=== PATIENT | female | born 1960 | race Hispanic/Latino ===

== ENCOUNTER 2019-03-04 12:31 | Emergency (ER) | payer OTHER ==
[~2019-03-04] VITALS: Ht 157.5 cm; Wt 98.0 kg
[~2019-03-04 12:31] MED LIST: ASPIR 8181 MG PO; CARVEDILOL25 MG PO; HYZAAR 50-12.51 EACH PO; LASIX20 MG PO
--- OUTSIDE RECORDS SUMMARY | 2019-03-04 12:34 | XMS REPORT ---
Author Author [facility] Address Unknown Phone Unavailable Care Team Providers Care Center Consultant Name Role Phone Unavailable Unavailable Payers Payer Name Policy Type Policy Number Effective Date Expiration Date Problems This patient has no known problems. Allergies, Adverse Reactions, Alerts Allergy Name Allergy Type Status Severity Reaction(s) Onset Date Inactive Date Treating Clinician Comments iodine DA Active U 2018-08-21 00:00:00 acetaminophen DA Active U 2018-08-21 00:00:00 iodine DA Active U 2018-08-18 00:00:00 acetaminophen DA Active U 2018-08-18 00:00:00 No Known Allergies DA Active U 2015-01-27 00:00:00 Medications This patient has no known medications. Results Test Description Test Time Test Comments Text Results Atomic Results Result Comments - CT ABD PELVIS W/O CONT 2018-09-25 12:36:00 Name: KRISTINA MAC [facility] : 1960 Age/S: 57 / F [address] [place] [address] Unit #: [id number] Loc: [place] [address] Phys: Bony Goss MD Acct: [id number] Dis Date: Status: REG CLI PHONE #: [phone] Exam Date: 09/25/2018 1105 FAX #: [phone] Reason: 789.01, R10.11, RIGHT UPPER QUADRANT ABDOMINAL EXAMS: CPT CODE: [id number] CT ABD PELVIS W/O CONT 05813 PROCEDURE: CT ABDOMEN AND PELVIS WITHOUT CONTRAST INDICATION: 789.01, R10.11, RIGHT UPPER QUADRANT ABDOMINAL PAIN. COMPARISON: No relevant priors are available TECHNIQUE: Helical imaging was performed diaphragm through the symphysis with multiplanar reconstructions. IV CONTRAST: None administered due to stated contrast allergy. GI CONTRAST: [address] imaging performed at this location utilizes radiation dose optimization techniques which include one or more of the following: -Automated exposure control - Adjustment of the mA and/or kV according to patient size -Use of iterative reconstruction technique CT Radiation Dose DLP 642.20 mGy-cm LIMITATIONS: Evaluation of abdominal viscera and vascular structures may be limited by the lack of intravenous contrast. FINDINGS: LOWER CHEST: The lung bases are clear. LIVER: Normal. GALLBLADDER: Surgically absent. No biliary dilatation. SPLEEN: Normal. PANCREAS: Normal. ADRENALS: Normal. KIDNEYS: Nonobstructing calculus upper pole left renal sinus 4 mm diameter. No hydronephrosis. The renal contours are normal. BOWEL: The stomach, small bowel and colon are unremarkable. Appendix not visualized. No evidence for appendicitis. PERITONEUM: No free intraperitoneal fluid or air. RETROPERITONEUM: No adenopathy. The aorta is normal. PELVIS: No pelvic mass. The urinary bladder is normal. PAGE 1 Signed Report (CONTINUED) Name: KRISTINA MAC [facility] : 1960 Age/S: 57 / F [address] [place], [place] [address]vd Unit #: [id number] Loc: [place] [address] Phys: Bony Goss MD Acct: [id number] Dis Date: Status: REG CLI PHONE #: [phone] Exam Date: 09/25/2018 1105 FAX #: [phone] Reason: 789.01, R10.11, RIGHT UPPER QUADRANT ABDOMINAL EXAMS: CPT CODE: [id number] CT ABD PELVIS W/O CONT 70254 <Continued> MUSCULOSKELETAL: Multilevel degenerative changes of the spine. No acute skeletal abnormality. IMPRESSION: 1. No acute abnormality demonstrated to account for the patient's symptoms. 2. Cholecystectomy. 3. Nonobstructing left nephrolithiasis. SL: [id number] at 1236 Reported and signed by: Isaak Church M.D. CC: Bony Goss MD; Douglas Parada MD Technologist:Jaxon Reis, RT(R)(CT) CTDI: DLP: Trnscb Date/Time: 09/25/2018 (2148) [email or web address] Orig Print D/T: S: 09/25/2018 (1010) PAGE 2 Signed Report SURGICAL SPECIMENS 2018-08-25 15:19:00 RUN DATE: 08/25/18 [facility] *LIVE* PAGE 1 RUN TIME: 1520 Specimen Inquiry RUN USER: INTERFACE PATIENT: KRISTINA MAC LOC: [facility] U #: [id number] AGE/SX: 57/F ROOM: RE08/21/18[facility] DR: Bony Goss MD : 56 BED: DIS: STATUS: DEP LUISC TLOC: SPEC #: [id number] RECD: 08/21/18 STATUS: ROMA REQ #: [id number] NEO: 08/21/18 [facility] DR: Bony Goss MD ENTERED: 08/23/18 SP TYPE: SURG SPEC OTHR DR: Douglas Parada MD ORDERED: LEVEL 4 CODES: [id number] - STOMACH, NOS COPIES TO: Bony Goss MD [address] [place], [place] [id number] [place] [address] [facility] [address] 2 [phone] PROCEDURES: GM LEVEL 4 (Incomplete) TISSUES: 1. STOMACH, NOS - Stomach, antrum and body, bx. FINAL DIAGNOSIS Stomach, antrum and body, bx.: Chronic gastritis with lymphoid aggregates, no Helicobacter organisms identified. GROSS AND MICROSCOPIC GROSS EXAMINATION: Received is/are the specimen/s designated with the appropriate dimensions and block designation: 1. Stomach, antrum and body, bx.: Multiple segments of pink-baxter tissue, measuring up to 0.3 cm. in greatest dimension each. MICROSCOPIC EXAMINATION: Sections of the "Stomach, antrum and body, bx." reveal changes of chronic gastritis. Some lymphoid aggregates are present but appear benign microscopically. The lamina propria contains a mild inflammatory infilt rate. The Alcian blue/PAS stain does not show goblet cell metaplasia. The immunostain for Helicobacter organisms is negative. (When special stains have been reviewed, the appropriate positive/negative controls have been reviewed and are appropriately positive/negative). CONTINUED ON NEXT PAGE RUN DATE: 08/25/18 [facility] *LIVE* PAGE 2 RUN TIME: 1520 Specimen Inquiry RUN USER: INTERFACE SPEC #: [id number] PATIENT: KRISTINA MAC #[id number] (Continued) POST-OP DIAGNOSIS Gastritis, Grade 1 esophageal varices, C- hemorrhoids PRE-OP DIAGNOSIS Colon cancer screening, epigastric pain, right upper quad. abdominal pain Signed SIGNATURE ON FILE Corry Childress MD 08/25/18 1519 END OF REPORT GLUBED 2018-08-21 13:39:00 GLUBED (test code=GLUBED) 110 MG/DL 70-110 Performed by certified forging machine operator at [facility] BASIC METABOLIC [id number] 11:36:00* Test Item Value Reference Range Comments SODIUM (test code=NA) 139 mEq/L 134-147 POTASSIUM (test code=K) 3.7 mEq/L 3.4-5.0 CHLORIDE (test code=CL) 107 mEq/L 100-108 CARBON DIOXIDE (test code=CO2) 29 mEq/L 21-33 ANION GAP (test code=GAP) 7 0-20 GLUCOSE (test code=GLU) 140 mg/dL 70-110 BLOOD UREA NITROGEN (test code=BUN) 7 mg/dL 7-18 GLOMERULAR FILTRATION RATE (test code=GFR) 102.3 90-95 Units of measure=ml/min/1.73 m2 CREATININE (test code=CREAT) 0.6 mg/dL 0.6-1.3 CALCIUM (test code=CA) 8.6 mg/dL 8.0-10.5 [id number] 11:18:00* Test Item Value Reference Range Comments GLUBED (test code=GLUBED) 130 MG/DL 70-110 Performed by certified forging machine operator at [facility] CBC W/AUTO [id number] 11:36:00* Test Item Value Reference Range Comments WHITE BLOOD CELL (test code=WBC) 6.89 x10 3/uL 4.5-11.0 RED BLOOD CELL (test code=RBC) 4.72 x10 6/uL 3.54-5.02 HEMOGLOBIN (test code=HGB) 14.2 g/dL 11.0-15.0 HEMATOCRIT (test code=HCT) 41.8 % 33.0-45.0 MEAN CELL VOLUME (test code=MCV) 88.6 fL 81.0-99.0 MEAN CELL HGB (test code=MCH) 30.1 pg 27.0-33.0 MEAN CELL HGB CONCETRATION (test code=MCHC) 34.0 g/dL 33.0-37.0 RED CELL DISTRIBUTION WIDTH CV (test code=RDW) 12.7 % 11.5-14.5 RED CELL DISTRIBUTION WIDTH SD (test code=RDW-SD) 41.4 fL 37.0-54.0 PLATELET COUNT (test code=PLT) 251 x10 3/uL 150-400 MEAN PLATELET VOLUME (test code=MPV) 11.2 fL 7.0-9.0 NEUTROPHIL % (test code=NT%) 66.4 % 56.0-77.0 IMMATURE GRANULOCYTE % (test code=IG%) 0.1 % 0.0-2.0 LYMPHOCYTE % (test code=LY%) 24.7 % 14.0-32.0 MONOCYTE % (test code=MO%) 6.4 % 4.8-9.0 EOSINOPHIL % (test code=EO%) 1.7 % 0.3-3.7 BASOPHIL % (test code=BA%) 0.7 % 0.0-2.0 NUCLEATED RBC % (test code=NRBC%) 0.0 % 0-0 NEUTROPHIL # (test code=NT#) 4.57 x10 3/uL 2.0-7.6 IMMATURE GRANULOCYTE # (test code=IG#) 0.01 x10 3/uL 0.00-0.03 LYMPHOCYTE # (test code=LY#) 1.70 x10 3/uL 1.0-3.8 MONOCYTE # (test code=MO#) 0.44 x10 3/uL 0.1-0.8 EOSINOPHIL # (test code=EO#) 0.12 x10 3/uL 0.0-0.2 BASOPHIL # (test code=BA#) 0.05 x10 3/uL 0.0-0.2 NUCLEATED RBC # (test code=NRBC#) 0.00 x10 3/uL 0.0-0.1 MANUAL DIFF REQUIRED (test code=MDIFF) NO BASIC METABOLIC [id number] 10:52:00* Test Item Value Reference Range Comments SODIUM (test code=NA) 138 mEq/L 134-147 POTASSIUM (test code=K) 3.8 mEq/L 3.4-5.0 CHLORIDE (test code=CL) 107 mEq/L 100-108 CARBON DIOXIDE (test code=CO2) 28 mEq/L 21-33 ANION GAP (test code=GAP) 7 0-20 GLUCOSE (test code=GLU) 169 mg/dL 70-110 BLOOD UREA NITROGEN (test code=BUN) 7 mg/dL 7-18 GLOMERULAR FILTRATION RATE (test code=GFR) 102.3 90-95 Units of measure=ml/min/1.73 m2 CREATININE (test code=CREAT) 0.6 mg/dL 0.6-1.3 CALCIUM (test code=CA) 8.8 mg/dL 8.0-10.5 - XR CHEST 2 [id number] 10:22:00 FAX: Bony Kirby MD [phone] Clifford: St: PRE FAX: Douglas Ta MD [phone] FAX: Gudelia Leiva Name: KRISTINA MAC [facility] : 1960 Age/S: 57/F [address] [place] [address] Bl Unit #: [id number] Loc: [place] [address] Phys: Gudelia Leiva NP Acct: [id number] Dis Date: Status: PRE SDC PH ONE #: [phone] Exam Date: 08/18/2018 1023 FAX #: [phone] Reason: COLON CANCER SCREEING EXAMS: CPT CODE: [id number] XR CHEST 2 V 22964 CLINICAL HISTO RY: COLON CANCER SCREENING COMPARISON: NONE PA and l ateral films of the chest demonstrate that heart size is normal. Lung fie lds are clear. No evidence of pneumonia or congestive failure is seen. A rthritic changes are present in dorsal spine with anterior and lateral ost eophytes present. Surgical clips in right upper quadrant of the abdomen h eart to be secondary to cholecystectomy are present. IMPRE SSION: No evidence of pneumonia or congestive failure is seen. Elect ronically Signed by Vj Sawyer on 08/18/2018 at 1022 Reported and signed by: Glen Sawyer M.D. CC: Charlie Goss MD; Douglas Parada MD; Gudelia Leiva NP Technologist: Debbie fuentesRT(R) Trnscrd Date/Time/By: 08/18/2018 (1022) : By: Jose Juan Orig Print D/T: S: 08/18/2018 (2755) PAGE 1 Signed Report
--- NOTE | 2019-03-04 14:07 | Diagnostic Imaging Report ---
EXAMINATION: CHEST SINGLE (NOT PORTABLE) INDICATION: Nausea COMPARISON: None FINDINGS: LINES/TUBES:None LUNGS:The lungs are well-inflated. No focal consolidation or pulmonary edema. PLEURA:No pleural effusion or pneumothorax. MEDIASTINUM:The heart is mildly enlarged. Atherosclerotic calcifications of the thoracic aorta. BONES/SOFT TISSUES:No acute osseous injury. ABDOMEN:No free air under the diaphragm. IMPRESSION: Mild cardiomegaly. No focal pneumonia or pulmonary edema. Signed by: Jillian Meléndez MD on 03/04/2019 2:04 PM
[2019-03-04 14:09] LABS: BASOPHILS % 0.2 % (0.0-1.0); EOSINOPHILS % 0.3 % (0.0-6.0); HEMATOCRIT 43.1 % (34.2-44.1); HEMOGLOBIN 14.8 g/dL (12.0-16.0); LYMPHOCYTES # (AUTO) 0.6 (1.0-3.2); LYMPHOCYTES % 8.4 % (18.0-39.1); MEAN CORPUSCULAR HEMOGLOBIN 30.3 pg (28-32); MEAN CORPUSCULAR HGB CONC 34.3 g/dL (31-35); MEAN CORPUSCULAR VOLUME 88.1 fL (81-99); MONOCYTES # (AUTO) 0.6 (0.2-0.8); MONOCYTES % 9.5 % (4.4-11.3); NEUTROPHILS # (AUTO) 5.3 (2.1-6.9); NEUTROPHILS % 81.1 % (38.7-80.0); PLATELET COUNT 240 x10e3/uL (140-360); RED BLOOD COUNT 4.89 x10e6/uL (3.6-5.1); RED CELL DISTRIBUTION WIDTH 12.8 % (11.7-14.4)
[2019-03-04 14:22] LABS: INR 1.03
[2019-03-04 14:23] LABS: PARTIAL THROMBOPLASTIN TIME 29.3 seconds (23.8-35.5)
[2019-03-04 14:30] LABS: ALANINE AMINOTRANSFERASE 21 IU/L (0-55); ALBUMIN 3.7 g/dL (3.5-5.0); ALKALINE PHOSPHATASE 120 IU/L (40-150); ANION GAP 12.6 mmol/L (8-16); BLOOD UREA NITROGEN 10 mg/dL (7-26); BUN/CREATININE RATIO 13 (6-25); CALCIUM 9.1 mg/dL (8.4-10.2); CARBON DIOXIDE 26 mmol/L (22-29); CHLORIDE 97 mmol/L (98-107); CREATINE KINASE 49 IU/L (29-168); EST GLOMERULAR FILTRATION RATE > 60 ML/MIN (60-); GLUCOSE 217 mg/dL (74-118); POTASSIUM 3.6 mmol/L (3.5-5.1); SODIUM 132 mmol/L (136-145)
== END 2019-03-04 16:33 | disposition home or self-care (01) ==
LOC: ER 12:31
DX: R55 Syncope and collapse (principal)
CPT/HCPCS: 36415; 71045; 80053; 82550; 82553; 83880; 84484; 85025; 85610; 85730; 93005; 99284

== ENCOUNTER 2024-10-23 11:48 | Emergency (ER) | payer MEDICARE, OTHER ==
[~2024-10-23] VITALS: Ht 154.9 cm; Wt 95.3 kg
[2024-10-23 12:25] LABS: BASOPHILS % 0.5 % (0.0-1.0); EOSINOPHILS # (AUTO) 0.1 (0.0-0.4); EOSINOPHILS % 2.2 % (0.0-6.0); HEMATOCRIT 41.3 % (34.2-44.1); HEMOGLOBIN 13.9 g/dL (12.0-16.0); LYMPHOCYTES # (AUTO) 1.1 (1.0-3.2); LYMPHOCYTES % 16.8 % (18.0-39.1); MEAN CORPUSCULAR HEMOGLOBIN 30.5 pg (28-32); MEAN CORPUSCULAR HGB CONC 33.7 g/dL (31-35); MEAN CORPUSCULAR VOLUME 90.8 fL (81-99); MONOCYTES # (AUTO) 0.4 (0.2-0.8); MONOCYTES % 6.8 % (4.4-11.3); NEUTROPHILS # (AUTO) 4.7 (2.1-6.9); NEUTROPHILS % 73.4 % (38.7-80.0); PLATELET COUNT 296 x10e3/uL (140-360); RED BLOOD COUNT 4.55 x10e6/uL (3.6-5.1); RED CELL DISTRIBUTION WIDTH 12.8 % (11.7-14.4); WHITE BLOOD COUNT 6.44 x10e3/uL (4.8-10.8)
[2024-10-23] MEDS: SODIUM CHLORIDE 0.9% 1000ML 1,000 ML IV ONE (12:41)
[2024-10-23] MEDS: METOCLOPRAMIDE HCL 10 MG/2ML VIAL IV ONE (12:42)
[2024-10-23 12:45] LABS: BILIRUBIN,URINE NEGATIVE (NEGATIVE); CLARITY,URINE CLEAR (CLEAR); COLOR,URINE YELLOW (YELLOW); GLUCOSE, URINE NEGATIVE (NEGATIVE); KETONES,URINE NEGATIVE (NEGATIVE); LEUKOCYTE ESTERASE ,URINE NEGATIVE (NEGATIVE); NITRITE,URINE NEGATIVE (NEGATIVE); PH,URINE 6.5 (5 - 7); PROTEIN,URINE DIPSTICK NEGATIVE (NEGATIVE); URINE UROBILINOGEN 1 mg/dL (0.2 - 1); WBC,URINE (MAN) 0-5 /HPF (0-5)
[2024-10-23 12:46] LABS: BACTERIA,URINE FEW /HPF; EPITHELIAL CELLS,URINE FEW /LPF
[2024-10-23 12:53] LABS: ALBUMIN 3.7 g/dL (3.5-5.0); ANION GAP 14.7 mmol/L (8-16); BILIRUBIN,TOTAL 0.5 mg/dL (0.2-1.2); CALCIUM 8.7 mg/dL (8.4-10.2); CREATININE, SERUM 0.7 mg/dL (0.57-1.11); POTASSIUM 3.7 mmol/L (3.5-5.1); TOTAL PROTEIN 7.4 g/dL (6.5-8.1)
[2024-10-23 15:11] VITALS: PULSE 66; RESP 16; TEMP 97
[2024-10-23] MEDS ORDERED: SUCRALFATE1 GM PO (15:18)
[2024-10-23] MEDS ORDERED: METOCLOPRAMIDE10 MG PO (15:18)
[2024-10-23 15:28] VITALS: BP 154/86; PULSE 77; RESP 16; TEMP 98.4; O2SAT 100
== END 2024-10-23 15:30 | disposition home or self-care (01) ==
LOC: ER 11:51
DX: R11.2 Nausea with vomiting, unspecified (principal); K29.70 Gastritis, unspecified, without bleeding; R10.13 Epigastric pain; I10 Essential (primary) hypertension; E11.9 Type 2 diabetes mellitus without complications
CPT/HCPCS: 36415; 74176; 80053; 81001; 83690; 85025; 93005; 99284; J2765; J7030